=== PATIENT | female | born 1975 | race Caucasian/White ===

== ENCOUNTER 2022-07-27 19:24 | Emergency (ER) | payer OTHER, SELFPAY ==
--- NOTE | ~2022-07-27 | XR_ITS ---
EXAMINATION: XR HAND, RIGHT CLINICAL INFORMATION: Cat bite of the right thumb COMPARISON: None TECHNIQUE: PA, lateral, and oblique views of the right hand. FINDINGS: No fracture or dislocation. Appropriate alignment. Joint spaces are maintained. The soft tissues are unremarkable. No radiopaque foreign body. XR/XR hand RT min 3V IMPRESSION: No fracture or malalignment. No radiopaque foreign body.
[2022-07-27 20:17] VITALS: BP 131/91; PULSE 86; RESP 16; TEMP 36.7; O2SAT 100; BMI 22.4
--- NOTE | 2022-07-27 20:17 | ED_ITS ---
HPI - General Adult General Chief complaint: Animal Bite <AKOSUA Drake - Last Filed: 08/09/22 09:46> Stated complaint: cat attack <AKOSUA Drake - Last Filed: 08/09/22 09:46> Time Seen by Provider: 07/27/22 23:17 <AKOSUA Drake - Last Filed: 08/09/22 09:46> Source: patient <Mendoza Iniguez MD - Last Filed: 07/28/22 02:35> Mode of arrival: ambulatory <Mendoza Iniguez MD - Last Filed: 07/28/22 02:35> Limitations: no limitations <Mendoza Iniguez MD - Last Filed: 07/28/22 02:35> History of Present Illness HPI narrative: Patient picked up a Cat to foster accidentally when carrier broke and cat fell down, bit her left thumb and the face otherwise CT is behaving normal and is at home. Patient is diabetic and had tetanus shot last 5 years <Mendoza Iniguez MD - Last Filed: 07/28/22 02:35> Related Data Home medications: Previous Rx's Medication Instructions Recorded amoxicillin 875 mg-potassium 1 tab PO BID #20 tabs 07/28/22 clavulanate 125 mg tablet doxycycline hyclate 100 mg tablet 100 mg PO BID #20 tabs 07/28/22 ibuprofen 600 mg tablet 600 mg PO Q6H PRN fever or pain 07/28/22 #30 tabs <AKOSUA Drake - Last Filed: 08/09/22 09:46> Allergies/adverse reactions: Allergies Allergy/AdvReac Type Severity Reaction Status Date / Time morphine [MORPHINE] Allergy Unknown NAUSEA Unverified 03/27/20 15:58 From REGLAN Allergy Unknown NAUSEA Uncoded 03/27/20 15:58 <AKOSUA Drake - Last Filed: 08/09/22 09:46> Review of Systems Review of Systems: Yes all other systems are reviewed and are negative <Mendoza Iniguez MD - Last Filed: 07/28/22 02:35> PMFSH Social History Social History: Social History Advance Directives: No Advance Directives Information Provided: No <AKOSUA Drake - Last Filed: 08/09/22 09:46> Physical Exam ED Vital Signs: Vital Signs - 24 hr 07/27/22 20:17 07/27/22 23:54 07/28/22 01:33 Temperature 98.1 F 97.5 F Pulse Rate 86 64 Respiratory Rate 16 17 16 Blood Pressure 131/91 H 109/66 Pulse Oximetry 100 100 Oxygen Delivery Method Room Air Room Air 07/28/22 01:44 Temperature 97.8 F Pulse Rate 58 Respiratory Rate 18 Blood Pressure 119/68 Pulse Oximetry 97 Oxygen Delivery Method Room Air BMI result Body Mass Index 22.4 <AKOSUA Drake - Last Filed: 08/09/22 09:46> Vital Signs - 24 hr 07/27/22 20:17 07/27/22 23:54 07/28/22 01:33 Temperature 98.1 F 97.5 F Pulse Rate 86 64 Respiratory Rate 16 17 16 Blood Pressure 131/91 H 109/66 Pulse Oximetry 100 100 Oxygen Delivery Method Room Air Room Air 07/28/22 01:44 Temperature 97.8 F Pulse Rate 58 Respiratory Rate 18 Blood Pressure 119/68 Pulse Oximetry 97 Oxygen Delivery Method Room Air BMI result Body Mass Index 22.4 <Mendoza Iniguez MD - Last Filed: 07/28/22 02:35> Appearance: Alert. Oriented X3. No acute distress. ENT: Pharynx normal. Oral Mucosa moist Neck: Normal inspection. Neck supple. CVS: Normal heart rate and rhythm. Pulses normal. Respiratory: No respiratory distress. Equal air entry bilateral, no wheezing/rales/rhonchi Skin: Skin warm and dry. Normal skin color. Normal skin turgor. Extremities: No lower extremity edema. Neuro: Oriented X 3. <Mendoza Iniguez MD - Last Filed: 07/28/22 02:35> [facility] Face images: 1. Small scratch moss <AKOSUA Drake - Last Filed: 08/09/22 09:46> 1. Small scratch moss <Mendoza Iniguez MD - Last Filed: 07/28/22 02:35> Extrem Hand/finger images: 1. Multiple punctured wound right thumb was swelling neurovascular intact <AKOSUA Drake - Last Filed: 08/09/22 09:46> 1. Multiple punctured wound right thumb was swelling neurovascular intact <Mendoza Iniguez MD - Last Filed: 07/28/22 02:35> Course Course Course Narrative: RME: 47 yoldl female attacked and bit in right thumb and scratch in face by stray cat with unknown rabies vaccine status. Will need tetanus shot, rabies, and antibiotics <AKOSUA Drake - Last Filed: 08/09/22 09:46> Medications Administered Discontinued Medications Generic Name Dose Route Start Last Admin Trade Name Freq PRN Reason Stop Dose Admin Bacitracin 2 appl 07/28/22 01:23 07/28/22 01:35 Bacitracin Oint 14 Gm Tube TOPICAL 07/28/22 01:24 2 appl ONCE ONE Administration Protocol Ampicillin Sodium/Sulbactam 100 mls @ 200 mls/hr 07/27/22 23:31 07/28/22 01: 58 Sodium 3 gm/ Sodium Chloride IV 07/28/22 00:00 Infused ONCE ONE Infusion Ketorolac Tromethamine 30 mg 07/27/22 23:32 07/28/22 00:14 Ketorolac Tromethamine 30 Mg/Ml Vial IVPUSH 07/27/22 23:33 30 mg ONCE ONE Administration <AKOSUA Drake - Last Filed: 08/09/22 09:46> Medications Administered Discontinued Medications Generic Name Dose Route Start Last Admin Trade Name Freq PRN Reason Stop Dose Admin Bacitracin 2 appl 07/28/22 01:23 07/28/22 01:35 Bacitracin Oint 14 Gm Tube TOPICAL 07/28/22 01:24 2 appl ONCE ONE Administration Protocol Ampicillin Sodium/Sulbactam 100 mls @ 200 mls/hr 07/27/22 23:31 07/28/22 01:58 Sodium 3 gm/ Sodium Chloride IV 07/28/22 00:00 Infused ONCE ONE Infusion Ketorolac Tromethamine 30 mg 07/27/22 23:32 07/28/22 00:14 Ketorolac Tromethamine 30 Mg/Ml Vial IVPUSH 07/27/22 23:33 30 mg ONCE ONE Administration <Mendoza Iniguez MD - Last Filed: 07/28/22 02:35> Medical Decision Making Medical Decision Making MDM Narrative: Patient has significant cat bite to the left right thumb will give IV Unasyn x-ray to rule out any bony involvement CT is at home and can be watched for next 10 days patient had tetanus shot less than 5 years wound cleaned x-ray negative of bony fragment. Patient received IV Unasyn <Mendoza Iniguez MD - Last Filed: 07/28/22 02:35> Discharge Plan Discharge Clinical Impression: Cat bite <AKOSUA Drake - Last Filed: 08/09/22 09:46> Patient Disposition: Home, Self-Care <AKOSUA Drake - Last Filed: 08/09/22 09:46> Instructions: Animal Bite (ED) <AKOSUA Drake - Last Filed: 08/09/22 09:46> Additional Instructions: Local care as adv Take antibiotic as prescribed Pain medication as prescribed Report to the ER if increased swelling of the hand or pain Keeping on a CT about her behavior follow with veterinary about the Cat evaluation <AKOSUA Drake - Last Filed: 08/09/22 09:46> Prescriptions: New ibuprofen 600 mg tablet 600 mg PO Q6H PRN (Reason: fever or pain) Qty: 30 0RF doxycycline hyclate 100 mg tablet 100 mg PO BID Qty: 20 0RF amoxicillin-pot clavulanate 875-125 mg tablet 1 tab PO BID Qty: 20 0RF <AKOSUA Drake - Last Filed: 08/09/22 09:46> Interventions: ED Discharge Assessment Last Done: 07/28/22 01:58 <AKOSUA Drake - Last Filed: 08/09/22 09:46> Discharge Date/Time: 07/28/22 02:02 <AKOSUA Drake - Last Filed: 08/09/22 09:46>
[2022-07-27 23:54] VITALS: BP 109/66; PULSE 64; RESP 17; TEMP 36.4; O2SAT 100
[2022-07-28] MEDS: Ampicillin Sodium/Sulbactam Na 3 GM in 0.9 % Sodium Chloride 100 ML IV (00:14)
[2022-07-28] MEDS: Ketorolac Tromethamine 30 MG/ML VIAL IVPUSH (00:14)
[2022-07-28 01:33] VITALS: RESP 16
[2022-07-28] MEDS: Bacitracin Oint 14 GM TUBE 2 APPL TOPICAL (01:35)
[2022-07-28 01:44] VITALS: BP 119/68; PULSE 58; RESP 18; TEMP 36.6; O2SAT 97
== END 2022-07-28 02:02 | disposition home or self-care (01) ==
PROVIDERS: Emergency Provider Internal Medicine
DX: S61.051A Open bite of right thumb without damage to nail, initial encounter (principal); W55.01XA Bitten by cat, initial encounter; Y93.9 Activity, unspecified; Y92.9 Unspecified place or not applicable; Y99.9 Unspecified external cause status
CPT/HCPCS: 73130; 96365; 96375; 99284; J0295; J1885